=== PATIENT | male | born 1980 | race Caucasian/White ===

== ENCOUNTER 2018-08-24 14:14 | Emergency (ER) | payer OTHER, SELFPAY ==
[2018-08-24 14:22] VITALS: BP 134/84; PULSE 62; RESP 16; TEMP 36.7; O2SAT 99
--- NOTE | 2018-08-24 15:38 | ED_ITS ---
HPI - Wound/Laceration <Ember Ren PA-C - Last Filed: 08/24/18 20:23> General Chief Complaint: Wound/Laceration Stated Complaint: right hand laceration Time Seen by Provider: 08/24/18 14:58 Source: patient Mode of arrival: ambulatory Limitations: no limitations History of Present Illness HPI narrative: This R. handed male was carrying a metal aircraft part when it slipped a little bit and the edge cut into his hand. He states that it was bleeding quite a bit at 1st, cleaned it out with some iodine. He denies any difficulty moving the hand, weakness or numbness, denies any other injury. He is unsure of the date of his last tetanus vaccine but thinks UTD in last 5 years. Related Data Allergies Allergy/AdvReac Type Severity Reaction Status Date / Time No Known Drug Allergies Allergy Verified 08/24/18 14:26 Review of Systems <Ember Ren PA-C - Last Filed: 08/24/18 20:23> Review of Systems ROS Unobtainable: All systems reviewed & are unremarkable except as noted in HPI and below PFSH <Ember Ren PA-C - Last Filed: 08/24/18 20:23> Medical History (Updated 08/24/18 @ 15:54 by Ember Ren PA-C) Anxiety (Chronic) HTN (hypertension) (Chronic) Surgical History (Updated 08/24/18 @ 15:50 by Ember Ren PA-C) Status post meniscectomy (Resolved) Social History Smoking Status: Never smoker Social History Smoking Status: Never smoker Exam <Ember Ren PA-C - Last Filed: 08/24/18 20:23> Narrative Exam Narrative: GENERAL APPEARANCE: Patient sitting comfortably, in no distress. LUNGS: Clear to auscultation bilaterally. HEART: Rate and rhythm regular without murmur, normal S1 and S2, no S3 or S4. DERMATOLOGIC: Right hand in the 1st and 2nd interdigital space there is a lac eration, medial 4 mm are slightly deeper to 1 mm depth, no gap, radial 1 cm portion of the wound is barely visible, no depth or gap. Skin approximates well. No active bleeding MUSCULOSKELETAL: Full active range of motion of the right hand fingers and thumb. Strength in all henao is intact against resistance in all fingers and thumb, thumb opposition intact NEUROVASCULAR: Right hand fingers are warm and pink with brisk cap refill, sensation grossly intact Initial Vital Signs Initial Vital Signs: Vital Signs Temperature 98.0 F 08/24/18 14:22 Pulse Rate 62 08/24/18 14:22 Respiratory Rate 16 08/24/18 14:22 Blood Pressure 134/84 08/24/18 14:22 Pulse Oximetry 99 08/24/18 14:22 <Lina Corona MD - Last Filed: 08/24/18 20:26> Initial Vital Signs Initial Vital Signs: Vital Signs Temperature 98.0 F 08/24/18 14:22 Pulse Rate 62 08/24/18 14:22 Respiratory Rate 16 08/24/18 14:22 Blood Pressure 134/84 08/24/18 14:22 Pulse Oximetry 99 08/24/18 14:22 Course <Ember Ren PA-C - Last Filed: 08/24/18 20:23> Additional Information: This wound is superficial and does not appear to need sutures. We did clean, Steri-Strip and bandage, and advised to avoid stretching the area and keep pressure off for a few days so it can heal. Advised to monitor for signs of infection. We had advised tetanus vaccine however patient wants to check his records at the [facility] because he believes is up-to-date, states he will get their if needed. Orders Ordered: Discontinued Medications Diphtheria/Tetanus/Acell Pertussis (Adacel) 0.5 ml IM .ONCE ONE Stop: 08/24/18 15:38 Last Admin: 08/24/18 16:02 Dose: Not Given Vital Signs - 8 hr 08/24/18 14:22 08/24/18 16:14 Temperature 98.0 F Pulse Rate 62 69 Respiratory Rate 16 16 Blood Pressure 134/84 134/81 Pulse Oximetry 99 98 <Lina Corona MD - Last Filed: 08/24/18 20:26> Orders Ordered: Discontinued Medications Diphtheria/Tetanus/Acell Pertussis (Adacel) 0.5 ml IM .ONCE ONE Stop: 08/24/18 15:38 Last Admin: 08/24/18 16:02 Dose: Not Given Vital Signs - 8 hr 08/24/18 14:22 08/24/18 16:14 Temperature 98.0 F Pulse Rate 62 69 Respiratory Rate 16 16 Blood Pressure 134/84 134/81 Pulse Oximetry 99 98 Discharge Plan Departure Patient Disposition: Home Clinical Impression: Laceration Discharge Date/Time: 08/24/18 16:15 Interventions: ED Discharge Assessment Last Done: 08/24/18 16:14 Instructions: DI for Minor Laceration Activity Restrictions/Additional Instructions: Please keep this wound by avoiding stretching your hand for the next few days until it is healed. Keep the tape on until it falls off, keep the wound clean and dry. Monitor for any signs of infection such as redness around the wound, increased pain or swelling, draining pus, or fever and return to ED or see your PCP right away if any. We have updated your tetanus vaccine today. Thank you for your service! Referrals: Helen Rubio MD [Primary Care Provider] -
[2018-08-24 16:14] VITALS: BP 134/81; PULSE 69; RESP 16; O2SAT 98
== END 2018-08-24 16:15 | disposition home or self-care (01) ==
PROVIDERS: Emergency Provider Internal Medicine
DX: S61.411A Laceration without foreign body of right hand, initial encounter (principal); W26.8XXA Contact with other sharp object(s), not elsewhere classified, initial encounter
CPT/HCPCS: 99282; 99283; 90715

== ENCOUNTER 2018-12-23 12:06 | Emergency (ER) | payer OTHER, SELFPAY ==
[2018-12-23 12:35] VITALS: PULSE 74; RESP 14; TEMP 36.2; O2SAT 98
--- NOTE | 2018-12-24 | ED_ITS ---
HPI - Ear Problem <DENICE Shay - Last Filed: 12/24/18 00:37> General Chief complaint: Ear Stated complaint: stabbing pain left ear Time Seen by Provider: 12/23/18 12:22 Source: patient Mode of arrival: Ambulatory Limitations: no limitations History of Present Illness HPI Narrative: This is a 38-year-old male, former smoker, who presents to ED with left ear pain for last 3 days without drainage. Patient reports he had an ear infection 3 months ago and was treated with antibiotic medications and steroids and was referred to ENT specialist for a complicated ear infection. At that time, patient reports the ear infection was very severe as compared to today. Patient denies fever/chills, nausea or vomiting, recent cold symptoms or congestion. Patient denies recent URI symptoms, sore throat, recent swimming in a pool or awake. He states uses ear-buds frequently, patient denies immunocompromise, or history of diabetes. Related Data Previous Rx's Medication Instructions Recorded [id number] 4 drop EAR-LEFT QID 10 Days #10 ml 12/23/18 Allergies Allergy/AdvReac Type Severity Reaction Status Date / Time No Known Drug Allergies Allergy Verified 12/23/18 12:38 Review of Systems <DENICE Shay - Last Filed: 12/24/18 00:37> Review of Systems Narrative: General: Denies fever, chills, fatigue, malaise, sweats. HEENT: See HPI Respiratory: Denies dyspnea, cough, wheezing, hemoptysis, sputum. Cardiovascular: Denies chest pain, palpitations, orthopnea, edema. Gastrointestinal: Denies nausea, vomiting, abdominal pain, diarrhea, constipation, melena. : Denies dysuria, frequency, incontinence, hematuria, urinary retention. Musculoskeletal: Denies weakness, joint pain or bony pain. Skin: Denies rash, skin lesions, or other. Neurologic: Denies weakness, headache, numbness, change in speech, confusion, seizures, incoordination. Psychiatric: No concerning psychosocial issues. 12-point review of systems is negative except for those stated above. PFSH <DENICE Shay - Last Filed: 12/24/18 00:37> Medical History Anxiety (Chronic) HTN (hypertension) (Chronic) Surgical History Status post meniscectomy (Resolved) Social History Smoking Status: Former smoker Social History Smoking Status: Former smoker Exam <DENICE Shay - Last Filed: 12/24/18 00:37> Narrative Exam Narrative: General appearance: well developed, well nourished, in no acute distress. Head: normocephalic, atraumatic, no scalp lesions, non-tender. No redness or swelling to face. Eye: pupil equal, round. EOMI. Ear: L ear canal obscuring with moderate amount purulent discharge with no obvious edema and difficult to visualize the TM. Mild tenderness to when left tragus palpated. Nose: nares patent. Oral: mucosa moist. Bilateral tonsillar hypertrophy with erythema. Neck/Thyroid: neck supple, full range of motion without discomfort, swelling to cervical lymph nodes per palpation Skin: no suspicious rashes, lesions over visible areas. Warm and dry. Heart: no clubbing, no cyanosis, no edema. Lungs: Breathing even and unlabored. No stridor. No accessory muscles used. Chest: normal shape and expansion. Abdomen: non-obese, non-distended. Neurologic: alert and oriented. Cognitive exam, [employer] and PNS grossly intact on informal exam. Psych: good eye contact, normal affect. Initial Vital Signs Initial Vital Signs: Vital Signs Temperature 97.2 F L 12/23/18 12:35 Pulse Rate 74 12/23/18 12:35 Respiratory Rate 14 12/23/18 12:35 Pulse Oximetry 98 12/23/18 12:35 <Verenice Aviles DO - Last Filed: 12/28/18 19:31> Initial Vital Signs Initial Vital Signs: Vital Signs Temperature 97.2 F L 12/23/18 12:35 Pulse Rate 74 12/23/18 12:35 Respiratory Rate 14 12/23/18 12:35 Pulse Oximetry 98 12/23/18 12:35 Medical Decision Making <DENICE Shay - Last Filed: 12/24/18 00:37> Differential Diagnosis Differential Diagnosis: Otitis externa Medical Records Medical records reviewed: Yes I reviewed the patient's medical records. [facility] Narrative Medical decision making narrative: Physical exam consistent with left otitis externa. POC strep test was negative. Patient discharged to home with Cortisporin ear drops to use for 10 days for qid. Wick insertion was not considered at this time due to there was no significant swelling in his ear canal. Patient advised to follow up with primary care physician next 2-3 days and if he gets worse to follow up with Dr. Sweet, ENT specialist. I discussed return precautions with the patient and verbalized the understanding and agrees with treatment plan. Advised to take wzzj-vsy-gtuowfb Tylenol and or Motrin as needed for discomfort. Discharge Plan Departure Patient Disposition: Home Clinical Impression: Otitis externa Qualifiers: Otitis externa type: unspecified type Chronicity: unspecified Laterality: left Qualified Code(s): H60.92 - Unspecified otitis externa, left ear Discharge Date/Time: 12/23/18 14:14 Instructions: DI for Otitis Externa Activity Restrictions/Additional Instructions: You have been diagnosed with [ otitis externa on L ear ]. What to do: *Take your medications as directed. Please use ear drops 4 times a day for next 10 days. You can take gahp-lsz-pibwwwt Tylenol and or Motrin as needed for discomfort and fever. *Follow up with your primary care provider in 2-3 days, call for an appointment. Let them know you were seen in the ED and that we asked you to be seen in follow up. *Return to ED if you have any new, worsening, or concerning symptoms, such as [increasing pain, redness spreading to her face, nausea or vomiting, fever, severe headache, neck tightness, breathing difficulty, chest pain or any concerns]. Prescriptions: New waolecml-zxkqvyfmz-PP 3.5-10,000-1 mg/mL-unit/mL-% drops,suspension 4 drop EAR-LEFT QID 10 Days Qty: 10 RF: 0 Referrals: Duarte Sweet MD [Physician] - Helen Rubio MD [Primary Care Provider] -
== END 2018-12-23 14:14 | disposition home or self-care (01) ==
PROVIDERS: Emergency Provider Nurse Practitioner Family
DX: H60.92 Unspecified otitis externa, left ear (principal)
CPT/HCPCS: 99282

== ENCOUNTER → 2020-12-20 07:45 | Outpatient (CLI) | payer OTHER, SELFPAY ==
--- NOTE | 2020-12-20 | DI.ECHO.S_ITS ---
Version: 1 Study ID: [id number] [place] [address] Name: DIMA COBURN Study Date: 12/20/2020, 8: 07 AM : 1980 BP: 153 / 86 mmHg Gender: Male Height: 67 in Age: 40 Years Weight: 185 lb BSA: 1.96 mA? Ordering: VENANCIO TAVAREZ Referring: VENANCIO TAVAREZ Clinician: Елена Nesbitt Reason For Study: CHEST PAIN History: Summary Statements Normal sinus rhythm. Normal LV size, wall thickness, wall motion and LV systolic function. EF is 60-65%. Normal chamber sizes. No valvular abnormalities. No prior study available for comparison. Procedure: A two-dimensional transthoracic echocardiogram with color flow and Doppler was performed. The study quality was technically adequate. There is no prior echocardiogram noted for this patient. The patient was in sinus rhythm with heart rates between 69-80 bpm during the exam. Left Ventricle: The ejection fraction is estimated to be 60-65%. The left ventricle is normal in size and wall thickness. Right Ventricle: The right ventricle is normal in size and function. Atria: There is no Doppler evidence for an interatrial shunt. Both atria are normal in size. Mitral Valve: There is trace mitral regurgitation. The mitral valve is normal in structure and function. Aortic Valve: No aortic regurgitation is present. There is no aortic valve stenosis. The aortic valve opens well. Tricuspid Valve: There is trace tricuspid regurgitation. Pulmonary artery pressures cannot be estimated because of the lack of a measurable TR jet velocity but the IVC suggests a CVP of around 3 mmHg. The tricuspid valve is normal in structure and function. Pulmonic Valve: There is no pulmonic valvular regurgitation. The pulmonic valve is not well seen, but is grossly normal. Great Vessels: The dimensions of the ascending aorta are normal. The aortic root is normal size. The IVC is of normal diameter and collapses greater than 50% with a sniff. This suggests a low right atrial pressure of 3 mm Hg. Pericardium/ Pleura: There is no pericardial effusion. There is no pleural effusion. 2D and M-Mode Measurements and Calculations LVIDd: 4.2 cm LVOT diam: 2.02 cm LVIDs: 3.1 cm Ao root diam: 3.0 cm IVSd: 0.85 cm asc Aorta Diam: 2.8 cm LVPWd: 0.90 cm Ao Arch Diam (Prox Trans): 2.6 cm LV montiel. diameter/BSA (cm/m^2): 2.14 LV sys. 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 LA A2 area: 18.4 professor of vegetable science? RA long axis: 4.9 cm LA length (vol): 5.0 cm RA vol: 37.1 ml LA vol: 49.0 ml RA : 18.9 ml/mA? LA vol index: 25.1 ml/mA? 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 AMANDA(V,D): 1.70 professor of vegetable science? AMANDA indexed to BSA (cm^2/m^2): 0.80 sev ratio: 0.49 MV E max brayan: 87.6 cm/sec MV dec time: 0.23 sec MV A max brayan: 72.6 cm/sec MV E/A: 1.21 Med Peak E' Brayan: 9.6 cm/sec Lat Peak E' Brayan: 17.2 cm/sec E/e' average: 7.1 PA V2 max: 109.4 cm/sec PA mean P.47 mmHg Electronically signed by: Gema Hauser M.D. 12/20/2020, 10: 15 PM
== END ==
DX: R07.9 Chest pain, unspecified (principal)
CPT/HCPCS: 93306

== ENCOUNTER → 2022-02-05 15:53 | Outpatient (CLI) | payer OTHER, SELFPAY ==
--- NOTE | 2022-02-05 | DI.RAD.S_ITS ---
PROCEDURE: XR LUMBAR SPINE 2-3V INDICATIONS: low back pain TECHNIQUE: 3 views of the lumbar spine were acquired. COMPARISON: None. FINDINGS: Bones: 5 krl-jyi-ptndevk vertebrae are present. There is normal bony alignment. No vertebral body compression fractures. Mild physiologic wedging of the T12 and L1 vertebral bodies. No suspicious bony lesions. Mild degenerative disc changes noted throughout the lumbar spine. Soft tissues: Overlying bowel gas pattern is normal. No suspicious soft tissue calcifications. IMPRESSION: 1. Multilevel degenerative disc disease. 2. No fracture. No acute osseous lesion. If symptoms and/or clinical suspicion for pathology persists, evaluation with MRI should be considered for further assessment. Dictated by: Susan Rojas MD, PhD on 02/05/2022 at 16:51 Approved by: Susan Rojas MD, PhD on 02/05/2022 at 16:52
--- NOTE | 2022-02-05 | DI.RAD.S_ITS ---
PROCEDURE: XR THORACIC SPINE 3V INDICATIONS: M54.9 TECHNIQUE: 3 views of the thoracic spine were acquired. COMPARISON: None. FINDINGS: Bones: No fractures or dislocations. No suspicious bony lesions. 12 pairs of ribs are noted, and appear intact where visualized. Soft tissues: No paravertebral stripe thickening. IMPRESSION: No fracture. No acute osseous lesion. If symptoms and/or clinical suspicion for pathology persists, evaluation with MRI should be considered for further assessment. Dictated by: Susan Rojas MD, PhD on 02/05/2022 at 16:50 Approved by: Susan Rojas MD, PhD on 02/05/2022 at 16:51
== END ==
PROVIDERS: PCP Family Medicine; Referring Provider Family Medicine; Visit Provider Family Medicine
DX: M51.36 Other intervertebral disc degeneration, lumbar region (principal); M54.9 Dorsalgia, unspecified; M54.50 Low back pain, unspecified
CPT/HCPCS: 72072; 72100

== ENCOUNTER → 2022-02-15 09:44 | Outpatient (CLI) | payer OTHER, SELFPAY ==
[2022-02-15 10:28] LABS: Add Manual Diff / Slide Review NO; Basophils Absolute Auto 0 /uL (0-100); Basophils Percent Auto 0.9 % (0-2); Eosinophils Absolute Auto 100 /uL (0-450); Eosinophils Percent Auto 1.8 % (2-4); Hematocrit 40.5 % (41-53); Hemoglobin 13.8 g/dL (13.5-17.5); Lymphocytes Absolute Auto 2200 /uL (1100-4500); Lymphocytes Percent Auto 46.7 % (25-40); Mean Corpuscular HGB Conc 34.1 % (30-36); Mean Corpuscular Hemoglobin 30.8 PG (26-34); Mean Corpuscular Volume 90.2 fL (80-100); Monocytes Absolute Auto 300 /uL (0-900); Monocytes Percent Auto 7.3 % (3-14); Neutrophils Absolute Auto 2100 /uL (1500-7000); Neutrophils Percent Auto 43.3 % (50-75); Platelet Count 243 X10^3/uL (150-400); Red Blood Cell Count 4.49 X10^6/uL (4.5-5.9); White Blood Cell Count 4.7 X10^3/uL (4.5-11.0)
[2022-02-15 10:54] LABS: Alanine Aminotransferase 22 IU/L (<50); Albumin 4.4 g/dL (3.5-5.0); Albumin Globulin Ratio 1.3 (1.0-2.8); Alkaline Phosphatase 61 U/L (38-126); Aspartate Aminotransferase 27 IU/L (17-59); BUN Creatinine Ratio 13.7 (6-22); Bilirubin Total 0.5 mg/dL (0.2-1.3); Blood Urea Nitrogen 13 mg/dL (9-20); C-Reactive Protein Quant < 0.5 mg/dL (<1.0); Calcium 8.9 mg/dL (8.4-10.2); Carbon Dioxide 29 mmol/L (22-32); Chloride 103 mmol/L (98-107); Cholesterol 174 mg/dL (140-199); Estimated Glomerular Filt Rate > 60 mL/min (>60); Globulin 3.3 g/dL (1.7-4.1); Glucose 102 mg/dL (70-100); HDL Cholesterol 69 mg/dL (40-60); HEMOLYSIS < 15 (0-50); LDL Cholesterol Calculated 84 mg/dL (<100); Potassium 4.2 mmol/L (3.4-5.1); Sodium 140 mmol/L (137-145); Total Protein 7.7 g/dL (6.3-8.2); Triglycerides 103 mg/dL (35-150); VLDL Cholesterol Calculated 21 mg/dL (2-30)
[2022-02-15 11:23] LABS: Erythrocyte Sedimentation Rate 4 MM/HR (0-15)
[2022-02-15 11:26] LABS: TSH w/ Reflex to FT4 1.09 uIU/mL (0.47-4.68)
== END ==
PROVIDERS: PCP Family Medicine; Referring Provider Family Medicine; Visit Provider Family Medicine
DX: M54.50 Low back pain, unspecified (principal); M54.9 Dorsalgia, unspecified; I10 Essential (primary) hypertension
CPT/HCPCS: 36415; 80053; 80061; 84443; 85025; 85651; 86140